=== PATIENT | female | born 1950 | race Caucasian/White ===

== ENCOUNTER 2016-12-07 15:00 | Inpatient (IN) | payer MEDICARE ==
[~2016-12-07] VITALS: Ht 165.1 cm; Wt 88.2 kg
--- NOTE | ~2016-12-07 | DS ---
PATIENT'S NAME: MARINA SUN [facility] AGE: 66 Y [address] ROOM: [id number] [place], [place] [address] LOCATION: GICU ADMIT DATE: 12/07/2016 Discharge Summary DISCHARGE DATE: 12/13/2016 FAMILY PHYSICIAN: Jerri Meade APRN ATTENDING PHYSICIAN: Louis Mcclellan PRESENTING COMPLAINT: Blurred right-sided vision. DISCHARGE DIAGNOSIS: Large acute ischemic stroke in left posterior cerebral hemisphere involving the occipital lobe and adjacent temporal lobe as well as a subacute ischemic infarct in the right occipital lobe. SECONDARY DIAGNOSES: 1. Patent foramen ovale, likely contributing to stroke. 2. Poorly controlled type 2 diabetes mellitus with initiation of insulin therapy during stay. 3. Chronic diastolic congestive heart failure. 4. Chronic obstructive pulmonary disease, baseline home oxygen requirement of 3 L. 5. Obesity, BMI 32. 6. Hypokalemia. 7. History of abdominal aortic aneurysm measuring 4 cm under current surveillance. 8. History of tobacco dependence in remission with 40 pack-year smoking history. 9. Acute kidney injury, creatinine as high as 1.41. PENDING LABS AND TESTS: At time of discharge none. HOSPITAL COURSE: Marina Valdez is a very pleasant, 66-year-old female, presenting to the hospital on December 07 with acute onset stroke symptoms including blurred visual disturbance most pronounced over the right lateral visual field that began the day prior to presentation, with associated headache and apparent confusion which had resolved by the time of admission. Initial imaging, noted above was concerning for multifocal strokes. This prompted further investigation for cardioembolic etiology of stroke. Hospital course was for the most part stable with regard to the stroke as patient did not develop new or worsening focal deficits, and did note that her vision had improved somewhat by the time of discharge. However, stay was complicated by ongoing hyperglycemia to the 200 and low 300s requiring institution of long- acting basal insulin with slowly increase dose up to 20 units daily at time of discharge, as well as initially an CALEB which rapidly resolved with IV fluids. Much of stay was dedicated to identifying intervenable risk factors going forward. The patient underwent NATASHA which was read on December 12 and noted EF 60% to 65%, moderate concentric LVH. Otherwise fairly unremarkable, but PATIENT'S NAME: MARINA SUN [facility] AGE: 66 Y [address] ROOM: [id number] [place], [place] [address] LOCATION: [facility] ADMIT DATE: 12/07/2016 Discharge Summary DISCHARGE DATE: 12/13/2016 FAMILY PHYSICIAN: Jerri Meade APRN ATTENDING PHYSICIAN: Louis Mcclellan poorly visualized valves. This prompted a transesophageal echocardiogram which was performed on same day and read as significant for a probable cardiac source of emboli secondary to patent foramen ovale confirmed with bubble study and a grade 4 atheroma of the ascending aorta. Left atrium was notably moderately dilated, but no thrombus in the left atrial appendage. From the time of admission, the patient had been placed on aspirin as well as high- intensity statin therapy with Lipitor. Following the NATASHA resulted on December 12 per Cardiology, followup plan will be to have patient seen in consultation likely in [place] for possible PFO closure. As patient was seen by Neurology and felt to have failed aspirin therapy, she was transitioned to Plavix prior to discharge in addition to ongoing statin therapy. No other obvious concerning findings during stay including a normal carotid ultrasound was performed. The patient as mentioned above did well. CONSULTANTS: Dr. Wheeler with Cardiology and Dr. Yin with Neurology. CONDITION: Discharged. Last noted vital signs prior to discharge temp 98.3, pulse 83 and regular, respirations 30, blood pressure 140/92, saturating 97% on usual home 3 L of oxygen. For final exam see progress note on date of discharge. DISPOSITION: The patient was discharged with instructions to follow up with her PCP as well as probably Cardiology for possible PFO closure. May need neurology follow up in the future, however will follow pending rehabilitative course and improvements with vision. Time spent on date of discharge, including direct patient care and coordination of discharge activities were 35 minutes. MD CAIT HUGHES/josette /[id number] d: 12/14/162 t: 12/19/16 0806, DISCHARGE SUMMARY
--- NOTE | ~2016-12-07 | ENPV ---
Carotid Duplex Study Demographics Patient Name MARINA SUN Date of Study 12/08/2016 Patient Number [id number] Gender Female Date of 1950 Age 66 Visit Number [id number] Height 65 Accession Number [id number] Weight 205 Referring Vy Rubio MD Interpreting Beto Mcguire MD Physician Physician Physician Ordering Physician Vy Rubio MD Trader Diamond Sizer Katty [facility], T Conclusions Summary The right internal carotid artery has mild, 1-39%, plaque and stenosis. The left vertebral artery is present with antegrade flow. The left internal carotid artery has mild, 1-39%, plaque and stenosis. The left vertebral artery is present with antegrade flow. Procedure Type of Study: Cerebral:Carotid, Carotid Doppler Bilateral. Indications for Study:Ulcer/gangrene. Additional Indications:cva Appropriate Use Criteria:7 Patient Status:Routine. Study Location:Mobile Services. Technical Quality:Adequate visualization. Velocities are measured in cm/s ; Diameters are measured in cm Carotid Right Measurements Carotid Left Measurements + +--------+--------+ + + + +--------+ --------+ + + !Location !PSV !EDV !Angle !%Stenosis ! !Location !PSV ! EDV !Angle !%Stenosis ! + +--------+--------+ + + + +--------+ --------+ + + !Prox CCA !52 !13 !60 ! ! !Prox CCA !94 ! 16 !60 ! ! + +--------+--------+ + + + +--------+ --------+ + + !Dist CCA !56 !11 !60 ! ! !Dist CCA !42 ! 11 !60 ! ! + +--------+--------+ + + + +--------+ --------+ + + !Prox ICA !52 !18 !60 ! ! !Prox ICA !38 ! 13 !60 ! ! + +--------+--------+ + + + +--------+ --------+ + + !Dist ICA !52 !20 !60 ! ! !Dist ICA !70 ! 25 !60 ! ! + +--------+--------+ + + + +--------+ --------+ + + !Prox ECA !96 !14 !60 ! ! !Prox ECA !69 ! 14 !60 ! ! + +--------+--------+ + + + +--------+ --------+ + + !Vertebral !44 !9 !60 ! ! !Vertebral !47 ! 21 !60 ! ! + +--------+--------+ + + + +--------+ --------+ + + !Subclavian !96 !2 !60 ! ! !Subclavian !110 ! 12 !60 ! ! + +--------+--------+ + + + +--------+ --------+ + + - There is antegrade vertebral flow noted on the right side. - Add'l Measurements:Subcl won PRV 110 cm/sICAPSV/CCAPSV 0.74.ICAEDV/CCAEDV 1.54. - Add'l Measurements:Subclavian PRV 96 cm/sICAPSV/CCAPSV 0.99.ICAEDV/CCAEDV 1.48. Impressions Right Impression There is a mild amount of smooth homogeneous plaque in the right carotid bifurcation . Left Impression There is a mild amount of smooth homogeneous plaque in the left carotid bifurcation . Signature dtt: MANDO CORONA dtd: 12/08/16 [facility]5 Physician Self Edit
--- NOTE | ~2016-12-07 | CON ---
PATIENT'S NAME: MARINA SUN [facility] AGE: 66 Y [address] ROOM: [id number] [place], [place] [address] LOCATION: GICU ADMIT DATE: 12/07/2016 Consultation DISCHARGE DATE: FAMILY PHYSICIAN: Jerri Meade APRN ATTENDING PHYSICIAN: Louis Mcclellan REFERRING PHYSICIAN: ROBYN GARDUNO APRN Consult for Dr. Mcclellan. I saw this patient on 12/08/2016 and I am dictating the consult on 12/09/2016 at about 1345 hours. Ms. Sun is a pleasant 66-year-old lady is referred for rehab evaluation, was admitted on 12/07 referred from [place], [place] with history of blurred vision, unable to balance herself well with blurred vision specially with the right eye and still on and off she feels blurred. She also reported that she had a headache and confusion. CT scan of brain report did show ischemic changes in the left occipital lobe measuring 5 x 1 cm. She has improved ever since with confusion and has a lesser extent right visual problems. She feels little unsteady. No nausea, no shortness of breath. Denied any previous history like that. No chest pain. No difficulty with her swallowing. No facial droop. She has may be some visual neglect on the right side. She moves bilateral upper and lower extremity well. Right upper extremity is about 4/5. She did ambulate about 80 feet x1 with PT with front wheeled walker and contact guard minimum assistance. She is at the present time, alert, oriented x3. VITAL SIGNS: Blood pressure 131/77, temperature 98.2, pulse 85, respirations 16. She is 5 feet 5 inches, weighs 93.0 kg. She can well control her bowel and bladder. Cranial nerves 2 through 12 are within normal limits except some slight blurred vision with the right temporal visual field. Tongue and soft palate are moving symmetrical. Voice is clear and not wet. MEDICATIONS: She is on the following medications. 1. Prednisone. 2. KCl. 3. Earth-3. 4. Calcium carbonate with vitamin D. 5. Mag-Ox 400. 6. Furosemide. 7. Tramadol. 8. Gabapentin. PATIENT'S NAME: MARINA SUN [facility] AGE: 66 Y [address] ROOM: [id number] [place], [place] [address] LOCATION: [facility] ADMIT DATE: 12/07/2016 Consultation DISCHARGE DATE: FAMILY PHYSICIAN: Jerri Meade APRN ATTENDING PHYSICIAN: Louis Mcclellan 9. Elavil. 10. Vasotec. 11. Catapres. 12. Pulmicort. 13. Benadryl. 14. Tylenol. 15. Insulin aspart, moderate scale. 16. Glucagon. 17. Glucose. 18. Dextrose. 19. NaCl 0.9%. 20. [place]. 21. Lopressor. 22. Tylenol. 23. Protonix. 24. Aspirin. 25. Lipitor. She has also long-standing low back pain. She had at least two surgeries but still complains of low back pain. ASSESSMENT AND PLAN: I feel this lady so far has made good progress. She did not want to be staying and going to rehab. I feel that if necessary she can follow on outpatient basis. I will keep her on PT, OT, and speech, which already has been initiated. I will follow alongside with you while she is here. Thank you for this referral. MD NIA DUNCANS/modl /[id number] d: 12/09/16 1459 t: 12/10/16 0733, CONSULTATION REPORT
--- NOTE | ~2016-12-07 | ECHO ---
Transthoracic Echocardiography Report (TTE) Demographics Patient Name MARINA SUN Date of Study 12/08/2016 JINX Patient Number [id number] Visit Number [id number] Date of 1950 Room Number S3616HZ Accession Number [id number] Gender Female Age 66 year(s) Referring Vy Rubio MD Dependency Case Manager Katty Bull [facility], Physician RVT Physician Interpreting Alla Vasquez MD Patient Support Representative Physician Supervising Ordering Physician Vy Rubio MD, MD/P Nurse Stress Surgical Supply Assistant Conclusions Summary The estimated left ventricular ejection fraction is 60-65%. Moderate concentric left ventricular hypertrophy. Mild concentric left ventricular hypertrophy. Trivial pulmonic valve regurgitation by color Doppler. The pulmonic valve is not well visualized. Procedure Type of Study TTE procedure:2D Echocardiogram. Procedure Date Date: 12/08/2016 Start: 10:59 AM Study Location: Inpatient Portable Technical Quality: Adequate visualization Additional Indications:CVA Appropriate Use Criteria: 9 Patient Status: Routine Rhythm: Sinus tachycardia HR: 81 bpm M-Mode/2D Measurements LV Diastolic Dimension: 4.08 cm LV Systolic Dimension: 2.4 cm LV Septum Diastolic: 1.39 cm LV Septum Systolic: 3.39 cm LV PW Diastolic: 1.2 cm AO Root Dimension: 2.3 cm Cardiac Output: 4.28 l/min LA Dimension: 2.7 cm RV Diastolic Dimension: 1.81 cm LVOT: 2.6 cm LVOT VTI: 9.96 cm IVC Inspiration: 0.97 cm LV Stroke volume: 52.85 ml RV Mid: 3.23 cm RV Length: 6.64 cm TAPSE: 1.7 cm TDI-S': 19.5 cm/s Doppler Measurements AV Peak Velocity: 1.45 m/s MV Peak E-Wave: 0.48 m/s AV Peak Gradient: 8.41 mmHg MV Peak A-Wave: 0.7 m/s AV Mean Gradient: 3 mmHg MV E/A Ratio: 0.69 LVOT Peak Velocity: 0.91 m/s MV Deceleration Time: 190 msec TR Velocity:2.25 m/s PV Peak Velocity: 0.9 m/s TR Gradient:20.25 mmHg PV Peak Gradient: 3.26 mmHg Estimated RAP:3 mmHg Estimated PASP: 23.25 mmHg Estimated RVSP: 23 mmHg A' Septal Velocity: 0.08 m/s E' Septal Velocity: 0.04 m/s MV E/E' Ratio: 12.3 Findings Left Ventricle The estimated left ventricular ejection fraction is 60-65%. Moderate concentric left ventricular hypertrophy. Mild concentric left ventricular hypertrophy. Diastolic assessment reveals Grade I diastolic dysfunction. Right Ventricle Mild to moderately dilated right ventricle. Left Atrium Normal left atrial size. Right Atrium Normal right atrial size. Mitral Valve Mild mitral regurgitation by color Doppler. Aortic Valve The aortic valve is mildly sclerotic. There is trivial aortic regurgitation by color Doppler. Tricuspid Valve Mild tricuspid regurgitation by color Doppler. Pulmonic Valve Trivial pulmonic valve regurgitation by color Doppler. The pulmonic valve is not well visualized. Pericardial Effusion No evidence of pericardial effusion. Miscellaneous Visualized portions of the aortic root and ascending aorta appear normal in size. Pleural Effusion No evidence of pleural effusion. Signature dtt: Pedro Gold (cardio) dtd: 12/08/16 1059 Physician Self Edit
--- NOTE | ~2016-12-07 | ECHO ---
Transesophageal Echocardiography Report (NATASHA) Demographics Patient Name MARINA SUN Date of Study 12/12/2016 JINX Patient Number [id number] Visit Number [id number] Date of 1950 Room Number [id number] Gender Female Number Age 66 year(s) Referring Vy Rubio MD Personnel Interviewer Kaitlynn Vásquez, Physician RT,RVT,RDCS Physician Interpreting Aminah Miles Checkering Machine Adjuster Physician MD Supervising Ordering Vy Rubio MD, MD/MLP Physician Nurse Stress Appeals Court Associate Justice Conclusions Summary There is evidence for cardiac source of emboli. There is evidence of a patent foramen ovale by color Doppler. Informed consent was obtained, bubble study was done, bubbles crossed to the left atrium suggesting a PFO. There is Grade IV atheroma in the ascending aorta. The left atrium is moderately dilated. There is no thrombus in the left atrial appendage. Supplemental 3D images of IA septum obtained. Patient tolerated the procedure well without any complications. Procedure Type of Study NATASHA procedure:Doppler , Color Doppler. Procedure Date Date: 12/12/2016 Start: 03:36 PM Study Location: Inpatient Portable Technical Quality: Good visualization Indications:CVA. Appropriate Use Criteria: 9 Patient Status: Routine HR: 81 bpm BP: 119/70 mmHg O2 Saturation: 95 % NATASHA Performed By: the attending and the residential sales consultant Type of Anesthesia: Moderate sedation Findings Left Ventricle Normal LV size and systolic function. Left Atrium The left atrium is moderately dilated. There is no thrombus in the left atrial appendage. There is evidence of a patent foramen ovale by color Doppler. Informed consent was obtained, bubble study was done, bubbles crossed to the left atrium suggesting a PFO. Mitral Valve Normal mitral valve structure and function. Trace MR. Aortic Valve The aortic valve is mildly sclerotic. There is trivial aortic regurgitation by color Doppler. Tricuspid Valve Normal appearing tricuspid valve. Pulmonic Valve Normal pulmonic valve structure and function. Miscellaneous The patient was in the fasting state after informed consent was obtained in the written and verbal format. She was prepped with Lidocaine spray as usual. Bite block was placed by nh. Once adequate anesthesia was obtained with anesthesia guidance with propofol sedation the NATASHA probe was placed by me down into the stomach. It was pulled back slightly after a few views were obtained in the transesophageal position where the majority of the case was carried out. At the end of the case the probe was rotated and withdrawn. Patient tolerated the procedure well. There is Grade IV atheroma in the ascending aorta. Contractility Score LV regional wall motion:(0-Non visualized 1-Normal 2-Hypokinesis 3-Akinesis 4-Dyskinesis 5-Aneurysm) Signature dtt: ROCKY BAILEY dtd: 12/12/16 1536 Physician Self Edit
--- NOTE | ~2016-12-07 | CON ---
PATIENT'S NAME: MARINA SUN [facility] AGE: 66 Y [address] ROOM: [place] [address] LOCATION: GICU ADMIT DATE: 12/07/2016 Consultation DISCHARGE DATE: FAMILY PHYSICIAN: Jerri Meade APRN ATTENDING PHYSICIAN: Louis Mcclellan DATE OF CONSULTATION: 12/08/2016 REFERRING PHYSICIAN: ROBYN GARDUNO APRN TIME: 1:45 p.m. CHIEF COMPLAINT: Left occipital stroke. HISTORY OF PRESENT ILLNESS: This is a 66-year-old female who is not necessarily health seeking. She was taken to [place] yesterday afternoon with stroke symptoms. Her stroke symptoms were blurred vision and a right visual field cut. She really cannot say when the symptoms started exactly. She had some headache and confusion also. She waited 24 hours before she sought medical attention. In [place], she had a CT which did show an ischemic stroke in the medial occipital lobe measuring 5 x 1. By the time she had gotten to [facility], she was no longer confused. She continues to have right vision deficits. She denies any headaches. She denies any recent changes in medications. Her right visual field, she describes as sort of like a "machine." She denies nausea and complains of being hungry and thirsty. She does not want to be in the hospital. She denies any chest pain, shortness of breath, or palpitations. She has no problems swallowing. She has no numbness or tingling in her extremities or any focal weaknesses per her complaints. ALLERGIES: NO KNOWN DRUG ALLERGIES. ILLNESSES: 1. Chronic diastolic congestive heart failure. 2. Essential hypertension. 3. Chronic hypoxic and hypercapnic respiratory failure with COPD. 4. Diabetes mellitus, type 2. 5. Morbid obesity. 6. Abdominal aortic aneurysm, recently measured 4 cm by recollection. MEDICATIONS: Include: 1. Amitriptyline 25 mg p.o. q.h.s. PATIENT'S NAME: MARINA SUN [facility] AGE: 66 Y [address] ROOM: [place] [address] LOCATION: GICU ADMIT DATE: 12/07/2016 Consultation DISCHARGE DATE: FAMILY PHYSICIAN: Jerri Meade APRN ATTENDING PHYSICIAN: Louis Mcclellan 2. Baclofen 10 mg p.o. b.i.d. 3. Pulmicort per nebulizer b.i.d. 4. Clonidine 0.1 mg p.o. b.i.d. 5. Vasotec 20 mg p.o. b.i.d. 6. Lasix 40 mg p.o. b.i.d. 7. Gabapentin 600 mg p.o. q.i.d. 8. Glipizide 5 mg p.o. b.i.d. 9. [place] 7.5/325 one tablet p.o. q.i.d. p.r.n. 10. Ibuprofen 800 mg p.o. b.i.d. scheduled. 11. Metformin 100 p.o. b.i.d. 12. Metoprolol 50 mg p.o. b.i.d. 13. Simvastatin 20 mg p.o. daily. 14. Tramadol 50 mg p.o. b.i.d. FAMILY HISTORY: Her father did have heart disease who of an [place] at age 57. Her mother from kidney disease at age 86. SOCIAL HISTORY: She lives in [place]. She is . She has a 33-ukas-grtp history, but has quit for more than 10 years. She does not use alcohol or illicit drugs. REVIEW OF SYSTEMS: All systems were reviewed and are negative as mentioned in the HPI. PHYSICAL EXAMINATION: VITAL SIGNS: Her temperature is 98.4, pulse is 78, respirations 18, blood pressure 144/88, and O2 saturation is 96% on 2 L nasal cannula. GENERAL: She is anxious and expresses displeasure about being in the hospital. She does cooperate with the exam. She is oriented x2. HEENT: Head is normocephalic and atraumatic. Sclerae are nonicteric. Pupils equal, round, and reactive. NECK: Supple without mass or adenopathy. No carotid bruits auscultated. HEART: Regular, with occasional PVCs. She does have a grade 1 to 2 out of 6 murmur best heard at the left upper sternal border. LUNGS: Diminished at the bases bilaterally. No adventitious sounds are heard. NEUROLOGICAL: Cranial nerves 2 through 12 demonstrate homonymous hemianopsia as described above. Strength is 4/5 in the upper and lower extremities. DTRs are 1 to 2 and symmetrical. Gait is not observed. Sensation is intact to light touch. Her NIH Scale is as follows: Level of consciousness 0, patient's current month and age 0, open and close eyes 0, best gaze 0, visual field testing 1, facial paresis 0, left arm motor 0, right arm motor 0, left leg motor 0, right leg motor 1, limb ataxia 0, sensory 0, language 0, dysarthria 0, extinction and inattention 0, for a total NIH stroke score of 2. PATIENT'S NAME: MARINA SUN [facility] AGE: 66 Y [address] ROOM: [id number] [place], [place] [address] LOCATION: [facility] ADMIT DATE: 12/07/2016 Consultation DISCHARGE DATE: FAMILY PHYSICIAN: Jerri Meade APRN ATTENDING PHYSICIAN: Louis Mcclellan ASSESSMENT AND PLAN: 1. The patient has had a large posterior cerebral artery stroke. She has had an MRI which has demonstrated this. Additional testing should include an echocardiogram and a CTA. Also, a carotid study is pending. Because this is very suspicious for a cardioembolic source, if the echo, the carotids, and the CTA are normal, would proceed with a NATASHA, and if that is normal, consider extended cardiac monitoring. 2. Stroke prevention. The patient is on aspirin 81 mg at home. We will change this to Plavix 75 mg p.o. daily. We will also keep her on her statin medication. 3. Stroke rehab. Appreciate PT, OT, and speech and their input with this patient. The patient also has chronic low back pain, so physical therapy is important in that aspect also. We would like to thank you for the chance to participate in this patient's care. The plan of care was developed with Dr. Velazquez and I. If you have any questions, please let us know. ROBYN GARDUNO APRN FOR HUBERT DOVER MD PP/josette /[id number] d: 12/09/16 1335 t: 12/13/16 1841, CONSULTATION REPORT
--- NOTE | ~2016-12-07 | CON ---
PATIENT'S NAME: MARINA SUN [facility] AGE: 66 Y [address] ROOM: [place] [address] LOCATION: [facility] ADMIT DATE: 12/07/2016 Consultation DISCHARGE DATE: FAMILY PHYSICIAN: Jerri Meade APRN ATTENDING PHYSICIAN: Louis Mcclellan REFERRING PHYSICIAN: ROBYN GARDUNO APRN REQUESTING PROVIDER: Louis Mcclellan MD REASON FOR CONSULTATION: History of CVA, two areas noted on the MRI, and plan for NATASHA to evaluate for cardioembolic source. CHIEF COMPLAINT: Change in vision as well as weakness and confusion. HISTORY OF PRESENTING ILLNESS: The patient is a very pleasant, 66-year-old female who is from [place]. She was admitted on 12/07/2016 with acute stroke. She had blurred vision and right visual field cut, and she was initially in [place]. She is unsure when her symptoms exactly started. She also had headaches and confusion. They got a CT scan there, and there was acute ischemic stroke measuring about 5 cm x 1 cm in the medial occipital lobe. By the time she got to [facility] on that day, her confusion essentially resolved, but she did have difficulty with her vision on the right side. She denies headaches. She really does not have any swallowing issues or difficulty breathing. She had complaints of lower extremity edema for which she was started on diuretics. She has chronic shortness of breath and dyspnea on exertion and is on home oxygen and has emphysema. She does not have any other acute complaints. No new chest pain, tightness, pressure, or heaviness. No palpitations or dizziness. She does ambulate with a walker. She reports she is able to walk since she has come in. She does not have any numbness, tingling, or swallowing issues and has been eating okay. No fevers, chills, cough, or sputum production. REVIEW OF SYSTEMS: All review of systems discussed with the patient. Pertinent positives and negatives mentioned in the History of Presenting Illness. ALLERGIES: NO KNOWN DRUG ALLERGIES. MEDICATIONS: She is on: PATIENT'S NAME: MARINA SUN [facility] AGE: 66 Y [address] ROOM: [place] [address] LOCATION: [facility] ADMIT DATE: 12/07/2016 Consultation DISCHARGE DATE: FAMILY PHYSICIAN: Jerri Meade APRN ATTENDING PHYSICIAN: Louis Mcclellan 1. Metoprolol 50 b.i.d. 2. Enalapril 20 b.i.d. 3. Clonidine 0.1 mg b.i.d. 4. Lasix 40 mg b.i.d. 5. Zocor 20 mg daily. 6. Baclofen 10 mg b.i.d. 7. Neurontin 600 q.i.d. 8. Tramadol 50 b.i.d. 9. Glipizide 5 b.i.d. 10. Metformin 1000 b.i.d. 11. Amitriptyline 25 q.h.s. 12. Ibuprofen 800 b.i.d. 13. Lortab 7.5/325 mg p.r.n. pain. 14. Budesonide Pulmicort 1 nebulized treatment b.i.d. 15. Ipratropium one inhaler t.i.d. 16. Prednisone 5 mg p.o. daily. 17. Potassium 10 mEq daily. 18. Calcium carbonate and vitamin D. 19. Aspirin 81 mg daily. 20. Tylenol p.r.n. 21. [place]-3 fatty acids one capsule daily. 22. Magnesium oxide 500 daily. 23. Metolazone 2.5 mg 3 days a week. PAST MEDICAL HISTORY: 1. Chronic diastolic CHF. 2. Lower extremity edema. 3. Hypertension. 4. Chronic hypoxia and chronic obstructive pulmonary disease, emphysema. 5. Diabetes mellitus, type 2. 6. Morbid obesity. 7. History of abdominal aortic aneurysm measuring 4 cm, and this is per the patient. FAMILY HISTORY: There is premature coronary artery disease in her father who of an [place] at age 57. No sudden cardiac . SOCIAL HISTORY: She lives in [place]. She smoked about 40 years, but has quit more than 10 years ago. She does not have any illicit drug abuse or alcohol abuse. PHYSICAL EXAMINATION: VITAL SIGNS: 98.1, pulse is 60, respirations 20, and O2 saturation is 98% on 2.5 L. I's and O's: In is 1240, out is 2275, negative balance of 1035. PATIENT'S NAME: MARINA SUN [facility] AGE: 66 Y [address] ROOM: [id number] [place], [place] [address] LOCATION: [facility] ADMIT DATE: 12/07/2016 Consultation DISCHARGE DATE: FAMILY PHYSICIAN: Jerri Meade APRN ATTENDING PHYSICIAN: Louis Mcclellan GENERAL: The patient is awake, alert, and oriented to time, place, and person. She is not in any apparent distress. She answers questions appropriately. PSYCHIATRIC: Normal mood and affect. SKIN: Warm and dry. HEENT: Head: Atraumatic and normocephalic. Eyes: No xanthelasmas. No jaundice. Sclerae white. NECK: Supple. No JVD. HEART: S1 and S2, regular rate and rhythm. No murmurs, gallops, or rubs. LUNGS: Clear to auscultation bilaterally. ABDOMEN: Soft. Bowel sounds positive. EXTREMITIES: Mild lower extremity edema. MUSCULOSKELETAL: Good range of motion. LABORATORY AND DIAGNOSTIC DATA: EKG: Normal sinus rhythm, nonspecific ST changes. Sodium 136, potassium 3.8, chloride 95, CO2 of 36, and creatinine 0.6. LDL is 51 and triglycerides 133. A1c 9.5. MRI shows: 1. Acute ischemic infarct which is a large area in the right posterior left cerebral hemisphere involving the occipital and adjacent posterior temporal lobe consistent with left posterior cerebral artery involvement. 2. Subacute ischemic infarct in the right occipital lobe which is 2 cm in size in the territory of the right posterior cerebral artery and white matter small vessel ischemic changes. No midline shift. Echocardiogram was done that shows LV systolic function of 60% to 65%, moderate concentric LVH, trivial PI, mild concentric LVH. Carotids bilaterally 1% to 39% stenosis. IMPRESSION AND PLAN: 1. Acute cerebrovascular accident involving two separate areas, suspicion for cardioembolic source of cerebrovascular accident. 2. Type 2 diabetes mellitus, not well controlled, with elevated A1c. 3. Essential hypertension that is fairly well controlled since admission. 4. Chronic diastolic congestive heart failure, appears to be well compensated, and her renal function is stable on current doses of diuretics. 5. History of abdominal aortic aneurysm. Clinically, she is stable. Continue routine followup with her primary care doctor and Vascular. Risks and benefits of NATASHA discussed with the patient. She does not have any contraindications. No swallowing issues. No history of radiation. Her labs are fairly stable. I will check a CBC and make sure her platelet count is PATIENT'S NAME: MARINA SUN [facility] AGE: 66 Y [address] ROOM: [id number] [place], [place] [address] LOCATION: [facility] ADMIT DATE: 12/07/2016 Consultation DISCHARGE DATE: FAMILY PHYSICIAN: Jerri Meade APRN ATTENDING PHYSICIAN: Louis Mcclellan as well. We will arrange with Anesthesia and coordinate a time and proceed with a NATASHA to evaluate for cardioembolic source for cerebrovascular accident. The patient understands all the risks and benefits, and she is agreeable to proceed with the plan at this time. Risks include tear in the esophagus as well as bleeding; also risk of changes in blood pressure, heart rate, and breathing with anesthesia administration which Anesthesia will discuss with the patient as well; risk of esophageal perforation; and is less than 1 in 1000 cases. Thank you very much for allowing us to participate in the care of Ms. Sun. ROCKY BAILEY MD AT/modl /[id number] d: 12/12/16 1400 t: 12/14/16 0922, CONSULTATION REPORT
--- NOTE | ~2016-12-07 | HP ---
PATIENT'S NAME: MACRINA SUN [facility] AGE: 66 Y [address] ROOM: [place] [address] LOCATION: [facility] ADMIT DATE: 12/07/2016 History & Physical DISCHARGE DATE: FAMILY PHYSICIAN: PHYSICIAN, UNKNOWN ATTENDING PHYSICIAN: Louis Mcclellan DATE OF SERVICE: CHIEF COMPLAINT: Left occipital stroke, ischemic. HISTORY OF PRESENTING ILLNESS: This 66-year-old white female was transferred to [facility] from [place] this afternoon with stroke symptoms that began yesterday. She describes some blurred visual disturbance over the right visual field that began sometime early yesterday. She can not really recount exactly what time. She did also develop headache and some progressive confusion apparently. She did not seek medical attention until today. Over the course of her evaluation, she had a CT scan, which showed an ischemic stroke in the medial left occipital lobe measuring 5 x 1 cm approximately. Her confusion has apparently improved, but she continues to experience visual disturbance. She admits to feeling a little unsteady on her feet but denies annie dizziness. She has not fallen. Presently, she denies headache. She reports visual disturbance over the right visual field. She describes it is a "sort of machine." She denies nausea and complains of feeling hungry and thirsty. She has not had any chest pain. She denies shortness of breath. She has not noticed any difficulties with chewing or swallowing. She denies annie abdominal pain, and has been stooling and voiding regularly. No numbness or tingling in her extremities or any associated physical or constitutional complaints. ALLERGIES: NO KNOWN DRUG ALLERGIES. ILLNESSES: 1. Chronic diastolic congestive heart failure. 2. Essential hypertension. 3. Chronic hypoxic and hypercapnic respiratory failure with COPD. 4. Diabetes mellitus type 2. 5. Morbid obesity. 6. Abdominal aortic aneurysm, recently measured 4 cm by her recollection. CURRENT MEDICATIONS: 1. Amitriptyline 25 mg p.o. q.h.s. PATIENT'S NAME: MACRINA SUN [facility] AGE: 66 Y [address] ROOM: [id number] [place] [address] LOCATION: [facility] ADMIT DATE: 12/07/2016 History & Physical DISCHARGE DATE: FAMILY PHYSICIAN: PHYSICIAN, UNKNOWN ATTENDING PHYSICIAN: Louis Mcclellan 2. Baclofen 10 mg p.o. b.i.d. 3. Pulmicort per nebulizer b.i.d. 4. Clonidine 0.1 mg p.o. b.i.d. 5. Vasotec 20 mg p.o. b.i.d. 6. Lasix 40 mg p.o. b.i.d. 7. Gabapentin 600 mg p.o. q.i.d. 8. Glipizide 5 mg p.o. b.i.d. 9. [place] 7.5/325 one tab p.o. q.i.d. p.r.n. 10. Ibuprofen 800 mg p.o. b.i.d. scheduled. 11. Metformin 1000 mg p.o. b.i.d. p.r.n. 12. Metoprolol 50 mg p.o. b.i.d. 13. Simvastatin 20 mg p.o. daily. 14. Tramadol 50 mg p.o. b.i.d. FAMILY HISTORY: Significant for heart disease in her father, who of an [place] at the age of 57. Mother from kidney disease at age 86. SOCIAL HISTORY: She lives in [place]. She has a [id number] history of smoking tobacco, but has been quit for more than 10 years. There is no significant history of alcohol use. REVIEW OF SYSTEMS: As per HPI. All other organ systems reviewed and are negative. PHYSICAL EXAMINATION: VITAL SIGNS: Temperature 98.1, pulse 83, respirations 18, blood pressure 167/89, O2 saturation 95% on 2 L per nasal cannula. GENERAL: She is anxious, but cooperative, lying in bed, no acute distress. She is oriented x2 (not oriented to time). SKIN: Supple, pink, warm, and dry. There are no obvious rashes. HEENT: Otherwise, normocephalic. Sclerae nonicteric. Pupils equal and round, slow to react to light, 7 to 8 mm. She demonstrates a homonymous hemianopsia on the right. Oropharynx is clear. Mucous membranes are pink and moist. NECK: Supple. Plethoric and obese. No masses. No adenopathy. No thyromegaly. No JVD. CHEST: Chest wall is symmetrical. HEART: Regular with occasional extrasystoles. There is grade 1 to 2 out of 6 systolic ejection murmur. LUNGS: Diminished at the bases. No crackles or wheezes are heard. ABDOMEN: Soft, morbidly obese. No masses or hepatosplenomegaly. Bowel sounds are present. and RECTAL: Not done. PATIENT'S NAME: MACRINA SUN [facility] AGE: 66 Y [address] ROOM: [id number] [place] [address] LOCATION: [facility] ADMIT DATE: 12/07/2016 History & Physical DISCHARGE DATE: FAMILY PHYSICIAN: PHYSICIAN, UNKNOWN ATTENDING PHYSICIAN: Louis Mcclellan EXTREMITIES: Display no clubbing, cyanosis, or edema. NEUROLOGIC: Cranial nerves 2 through 12 demonstrate the homonymous hemianopsia as described above. Strength is 4 to 5 out of 5 bilaterally in upper and lower extremities. DTRs are 1 to 2+ symmetrical. Gait is not observed. Sensation appears intact. LABORATORY AND X-RAY DATA: From [place], an EKG shows normal sinus rhythm with nonspecific ST abnormalities. CT scan demonstrates the ischemic stroke in the left occipital lobe as described above. CBC showed a white blood cell count elevated at 12.3, hemoglobin 15.3, hematocrit 47, platelets 315. Chemistries revealed BUN and creatinine of 19 and 1.41 respectively, sodium and potassium of 133 and 3.7, chloride and CO2 are 89 and 37, calcium 9.9. Glucose was elevated at 322. ASSESSMENT AND PLAN: 1. Ischemic stroke, left occipital lobe, subacute presentation. As described above, she presented approximately 24 hours after the development of her symptoms, and therefore well outside of the window for consideration for thrombolysis. We will admit to inpatient care. I placed her on the stroke pathway. We will add aspirin to her regimen and augment her statin therapy with Lipitor. We will follow up on fasting lipid results when they are known. We will also plan to proceed with MRI scanning and carotid Doppler ultrasound and echocardiography and follow up on those when the results are known. We will request consultation by Neurology as well. We will plan to gauge in some restorative cares including physical therapy, occupational therapy, and speech therapy evaluations. 2. Acute encephalopathy, resolved. Probably related to stroke as described above. Unclear what her baseline functional status is, but she appears to be more or less "back to normal." We will monitor and provide ongoing supportive cares. 3. Diabetes mellitus type 2, uncontrolled. We will manage with Accu-Cheks and sliding scale insulin while she is inpatient. 4. Essential hypertension, suboptimal control. We will resume her home medication regimen and monitor. We will allow some permissive hypertension at least for this evening. 5. Acute kidney injury. It is not clear what her baseline creatinine is, and she could have some element of underlying chronic kidney disease. We will gently hydrate with IV fluids at TKO rate. 6. Chronic diastolic congestive heart failure. Currently, appears to be compensated. We will await echo results and follow up accordingly. 7. Morbid obesity. We will need to work on some long-term strategies for weight loss including balance, dietary intake, calorie reduction, increased exercise, etc.. PATIENT'S NAME: MACRINA SUN [facility] AGE: 66 Y [address] ROOM: [place] [address] LOCATION: [facility] ADMIT DATE: 12/07/2016 History & Physical DISCHARGE DATE: FAMILY PHYSICIAN: PHYSICIAN, UNKNOWN ATTENDING PHYSICIAN: Louis Mcclellan 8. Abdominal aortic aneurysm, clinically stable and asymptomatic. Plan clinical followup. 9. Deep venous thrombosis prophylaxis. We will follow the VTE protocol. Mobilize as she is physically able. MD SYDNEY SOLORIO/modl /[id number] D: [id number] T: [id number] HISTORY & PHYSICAL
[2016-12-07] MEDS ORDERED: LOPRESSOR50 MG PO (17:00)
[2016-12-07] MEDS ORDERED: VASOTEC20 MG PO (17:01)
[2016-12-07] MEDS ORDERED: CATAPRES0.1 MG PO (17:02)
[2016-12-07] MEDS ORDERED: LASIX40 MG PO (17:03)
[2016-12-07] MEDS ORDERED: LIORESAL10 MG PO (17:04)
[2016-12-07] MEDS ORDERED: ZOCOR20 M1 PO (17:04)
[2016-12-07] MEDS ORDERED: ULTRAM50 MG PO (17:05)
[2016-12-07] MEDS ORDERED: NEURONTIN600 MG PO (17:05)
[2016-12-07] MEDS ORDERED: GLIPIZIDE5 MG PO (17:06)
[2016-12-07] MEDS ORDERED: ELAVIL25 MG PO (17:07)
[2016-12-07] MEDS ORDERED: GLUCOPHAGE1000 MG PO (17:07)
[2016-12-07] MEDS ORDERED: MOTRIN800 MG PO (17:07)
[2016-12-07] MEDS ORDERED: HYDROCODON-ACE1 EAC2 PO (17:08)
[2016-12-07] MEDS ORDERED: PULMICORT1 MG/2 ML INH (17:09)
[2016-12-07] MEDS ORDERED: ATROVENT I0.5 MG/2.5 INH (17:10)
[2016-12-07] MEDS ORDERED: KLOR-CON SPRIN10 MEQ PO (17:11)
[2016-12-07] MEDS ORDERED: DELTASONE2.5 MG PO (17:11)
[2016-12-07] MEDS ORDERED: CALCIUM + D3 E1 EACH PO (17:12)
[2016-12-07] MEDS ORDERED: ASPIRIN (CHILDR81 MG PO (17:13)
[2016-12-07] MEDS ORDERED: TYLENOL PM EX-1 EACH PO (17:13)
[2016-12-07] MEDS ORDERED: OMEGA 3 FISH O1 EACH PO (17:14)
[2016-12-07] MEDS ORDERED: MAGNESIUM500 MG PO (17:16)
[2016-12-07] MEDS ORDERED: GLUCOSAMINE &1 EAC1 PO (17:16)
--- NOTE | 2016-12-07 17:18 | NUR ---
Significant Event: PATIENT ARRIVED TO FLOOR AT 1545. HAS BEEN FEELING FUNNY A FEW DAYS. STATES TROUBLE WITH RIGHT EYE AND FEELING WEAK. PATIENT IS A/O X 3. FOLLOWS COMMANDS. DOES HAVE DRIFT TO RT LEG, BUT MODERATE STRENGTH IN ALL EXTREMITIES. DENIES NUMBNESS/TINGLING. DID NOT REALLY NOTICE A FACIAL DROOP. AT THIS TIME. PUPILS 4MM, BRISK. LUNGS CLEAR AND DIM ON 3 LITERS OF 2 WHICH SHE WEARS AT HOME. DID HAVE BM THIS AM. C/O CHRONIC PAIN TO BACK. IV IN LEFT HAND CURRENTLY SALINE LOCKED. NIHSS =3 . ALARMS ON FOR SAFETY. DR BRAY HERE NOW TO ASSESS PATIENT AND DO ORDERS. Follow up: ADMISSION ORDERS.
[2016-12-07 19:25] LABS: CREATININE 0.8 mg/dL (0.5-1.1)
--- NOTE | 2016-12-08 04:36 | NUR ---
Significant Event: Patient is A/O, c/o back pain rated at a 7 on a 0-10 scale, PRN [place] x2. Follows commands, all extremeties equal mod strength. 1A to bathroom, gait steady. No slurred speech noted. Patient c/o R) visual field disturbances. LS clear, 3L O2 via NC, SpO2 >90%. BS x4, mod soft bm this shift. ADA diet, ate 50% of dinner. PRN Benadryl given at HS per patients request, slept well, independent for repositioning. MRI screening completed. Follow up: MRI with and without contrast this AM
[2016-12-08] MEDS ORDERED: ZAROXOLYN2.5 MG PO (10:15)
--- NOTE | 2016-12-08 13:44 | NUR ---
[facility] note: 1300 Reviewed patient chart, current A1C was 9.5 %; Patient was on Metformin 1000 mg BID and Glipizide 5 mg BID at home. Current blood sugars since admission 200-300, patient reports that she recently had steriod back injection and is on Predisone 5 mg daily. Discussed importance of proper glycemic control to reduce risks of terminal operator complications associated with type 2 diabetes (heart, eyes, kidneys, nerves and stroke) CDE wrote recommendation to MD on Progress note to consider starting Levemir insulin to assist with glycemic control. Patient verbalizes that she is "...going home tomorrow" and does not want to have to take insulin shots at home. Diabetes Management Booklet provided and patient is willing to fill out the Diabetes Survival Skills checklist left at bedside, will continue to follow.
--- NOTE | 2016-12-08 16:23 | NUR ---
Introduced self and CM role to Kelli. Kelli tells me that she lives at home in [place], [place] with her . Her plan is to return there upon dismissal. PCP is Jerri Woodruff at [facility] in [place], [place]. Kelli manages her own medications at home and get them filled either at the [facility] or by mail order through her Medicare [employer] plan. Kelli uses a 4WW at baseline and denies any needs for any additional DME when she is dismissed. Talked with her at length about HHC vs Outpatient therapies upon dismissal. She would rather do outpatient ST in [place] than have HHC. She also asked about a resource to use to help her find someone that might want to come in and do some cleaning for her at home. Gave her the phone number to [facility] here in [facility] and let her know to start there to see what they might be able to help her with. Kelli states that her or other family will come and pick her up when she is ready to dismiss. No other questions, needs or concerns. Left my contact information on her whiteboard incase any other questions come up. CM to continue to follow and assist. Plan home.
--- NOTE | 2016-12-08 16:53 | NUR ---
Significant Event: PATIENT IS ALERT AND ORIENTED. CAN'T SEE OUT OF RIGHT EYE. 2+ PULSES THROUGHOUT. TRACE EDEMA THROUGHOUT EXTREMITIES. ON 3L O2 NC THE WHOLE DAY, AND WILL DROP INTO 70'S AND 80'S WITH ACTIVITY AND THEN RETURNS TO 90'S WITH REST. LUNGS CLEAR AND DIM. DIABETIC DIET WITH ACHS ACCU CHECKS. PATIENT TREATED WITH INSULIN FOR 0700 AND 1100 BLOOD SUGAR LEVELS. PATIENT REPORTED TWO SMALL BM'S THIS MORNING. NO NEW OR WORSENING SKIN ISSUES. PERIPHERAL IV IN LEFT HAND HAS NS RUNNING AT 20 ML/HR THROUGHOUT THE DAY. PATIENT HAD SCHEDULED MRI THIS MORNING AND WAS OFF THE UNIT FROM 0740 TO 0820. PATIENT HAD SCHEDULED CT THIS EVENING AND WAS OFF THE UNIT FROM 1600 TO 1620. ASPIRIN WAS DC'S AND PATIENT STARTED ON PLAVIX. PATIENT COMPLAINED OF UNBEARABLE BACK PAIN THIS AFTERNOON AND REFUSED HER TRAMADOL. PATIENT STATED "ONLY HYDROCODONE RELIEVES PAIN", SO I GAVE PRN ACET/HYDRO. PATIENT WAS AGITATED. PATIENT IS CURRENTLY UP IN CHAIR. Follow up:
[2016-12-09 05:19] LABS: ANION GAP 10.1 (10.0-19.0); BLOOD UREA NITROGEN 12 mg/dL (6-24); CALCIUM 9.1 mg/dL (8.5-10.5); CHLORIDE 96 mMol/L (96-110); CO2 34 mMol/L (22-32); CREATININE 0.6 mg/dL (0.5-1.1); POTASSIUM 3.1 mMol/L (3.7-5.1); SODIUM 137 mMol/L (135-145)
--- NOTE | 2016-12-09 06:53 | NUR ---
Significant Event: PT IS A/O X3, VSS ON 3L 02 N/C. IMPAIRED PERIPHERAL VISION OF THE RIGHT EYE. FOLLOWS COMMANDS, EQUAL STRENGTH ON ALL EXTREMETIES. TRACE EDEMA ON LOWER EXTREMETIES. LS CLEAR/ DIMINISHED, WILL DESATURATE AND INCREASE IN RR WITH ACTIVITY. HAS PIV ON LEFT HAND, TKO AT 20ML/HR. HAS CHRONIC BACK PAIN, NORCO SCHEDULED Q8H WITH LAST DOSE GIVEN AT 0500. DMT2 WITH ACHS ACCU CHECKS. Follow up:
--- NOTE | 2016-12-09 08:30 | NUR ---
Diabetes consult: Visited with the patient this morning regarding her diabetes. The patient was informed that her A1C was 9.5%. She reports this is improved from a 10%, a couple of months ago. The patient is not wanting to start insulin therapy, although she has done insulin in the past. She attributes her high A1C to recent steroid injection in her back for pain control. She was informed of the increase risk of spool tender complications with blood sugars being elevated. She remains insistent that she can watch her nutrition and continue to take her oral pills. Education was provided and guided by topics on the survival skills checklist. She denies questions or concerns.
--- NOTE | 2016-12-09 14:29 | NUR ---
PT DENIES NEED FOR LOW SODIUM DIET INSTRUCTION. SHE FOLLOWS A DIABETIC DIET AT HOME, AND ALONG WITH THAT WATCHES HER SALT AND FAT INTAKE. SHE STATES THAT SHE USED TO USE A LOT OF SALT, BUT RARELY USES OR COOKS WITH SALT. PT REPORTS THAT SHE KEPT HER DIABETES UNDER CONTROL WELL, BUT WHEN SHE STARTED ON STEROIDS, IT MADE HER BS GO HIGH. PT DOES NOT HAVE ANY QUESTIONS AT THIS TIME.
--- NOTE | 2016-12-09 17:44 | NUR ---
SIGNIFICANT EVENT: PATIENT ALERT, ORIENTED X3. PUPILS EQUAL AND REACTIVE. NODS YES/NO APPROPRIATELY. MOVES ALL 4 EXTREMITIES SPONTANEOUSLY AND TO COMMANDS. EQUAL STRENGTH THROUGHOUHT. SOME FORGETFUL COMMENTS. EASILY AGITATED. DENIES NUMBNESS, TINGLING. COMPLAINS OF OCCASIONAL BACK PAIN, RELIEF NOTED WITH NORCO EVERY 8 HOURS. HR 70-80S. PULSES PALPABLE THROUGHOUT. BP STABLE. SBP 120-150S. MAP> 65. AFEBRILE. PATIENT ON 3L NASAL CANNULA, SATS MID 90S. BOWEL SOUNDS PRESENT, NO BM TODAY. ADEUQATE URINE OUTPUT. ACCU CHECKS AC AND HS. NO NEW SKIN ISSUES NOTED. PIV WITH NS TKO FOLLOW UP: TTE RESULTS PENDING, CONTINUE TO MONITOR
--- NOTE | 2016-12-10 05:24 | NUR ---
Significant Event: Follow up: PATIENT NODS YES/NO TO QUESTIONS, MOVE EXTREMITIES X4, VITAL SIGNS WNL, VOIDS, COMPLAINED OF CHEST PAIN, EKG NORMAL, NIH SCALE SCORE 2
--- NOTE | 2016-12-10 05:41 | NUR ---
PATIENT A/OX3. HYPERTENSIVE, MOVE EXTREMETIES X4, COMPLAINED OF PAIN, VOIDS
--- NOTE | 2016-12-10 17:45 | NUR ---
PATIENT IS AAOX 3. SHE MOVES ALL AND FOLLOWS COMMANDS. SHE SAYS THAT SHE IS IN CONSTANT BACK PAIN. SHE IS HAVING DIFFICULTY SEEING OUT HER OF RIGHT EYE. SHE SAYS SHE IS SEEING THINGS LIKE (FANS MVOING). SHE DID EXPRESS THIS TO MD HOLLAND SO HE IS AWARE. SHE IS ON 3L OF O2. SHE REFUSED HER SECOND BREATHING TREATMENT TODAY BUT HER LUNGS SOUNDS CLEARER THAN THIS MORNING. SHE DID WALK WITH PT. SHE VOIDS TO [facility]. SHE DID NOT HAVE A BOWEL MOVEMENT TODAY BUT HAS ORDERED PRUNE JUICE TO HELP. HER SUGARS WERE HIGH TODAY BUT CONSISTENT ([phone]). WHEN YOU CAN GET HER TALKING ABOUT HER AND FAMILY SHE SEEMS MORE RELAXES AND HAPPIER AND ISN'T FOCUSED ON THE PAIN SO MUCH.
--- NOTE | 2016-12-11 05:33 | NUR ---
Significant Event: Follow up: patient a/ox3, vital signs wnl, sleep all night, moves extremities x4, voids in toliet, complained of pain x2
[2016-12-11 05:38] LABS: BLOOD UREA NITROGEN 18 mg/dL (6-24); CALCIUM 9.4 mg/dL (8.5-10.5); CHLORIDE 95 mMol/L (96-110); CREATININE 0.6 mg/dL (0.5-1.1); POTASSIUM 3.8 mMol/L (3.7-5.1); SODIUM 136 mMol/L (135-145)
[2016-12-11 05:39] LABS: ANION GAP 8.8 (10.0-19.0); CO2 36 mMol/L (22-32)
--- NOTE | 2016-12-11 14:54 | NUR ---
Significant Event: Patient A/Ox3, follows all commands. 1 assist with walker to BR. Continues with right peripheral visual deficit. Denies GARNETT. C/O chronic back pain, scheduled pain medications given. Refused 1100 tylenol. Prn oxycodone givenx1 dose. SR with HR 60-80's. SBP 98-137. Afebrile. On 2L NC, spo2>94%. Lungs asculted clear-clear diminished. Active bowel sounds. Patient states no BM since last monday, new order for docusate and first dose given. ADA diet, good appetite. Accuchecks AC/HS, treatedx2. Follow up:Possible NATASHA on monday/ awaiting TTE results, need to call Dr. Gaitan with them.
--- NOTE | 2016-12-12 05:35 | NUR ---
Significant Event: Follow up: PATIENT A/O X3, MOVES EXTREMITIES X4, VITAL SIGNS WNL, PAIN X2, VOIDS, AMBULATES TO THE TOLIET
--- NOTE | 2016-12-12 08:17 | NUR ---
PT SCREENED D/T LOS. EST NEEDS: 6030-4822 KCALS, 85 GM PROTEIN, 1 ML/KCAL FLUIDS. INTAKE ADEQUATE. BMI IN OBESE RANGE. NO NUTRITION-RELATED DX IDENTIFIED. WILL ASSIST NEEDED.
--- NOTE | 2016-12-12 12:39 | NUR ---
Social visit with Nellie' RN Chioma. Chioma says that they are still waiting on the results fo her TTE to be read before she can have the NATASHA and hopefully after that is done, she will be able to do home. I asked Chioma when that TTE was done and she tells me it was done last week on , it just hadn't been read yet. I then asked if herself or rn relief charge would call and inquire why it hadn't been read yet and when someone was going to do this as this was causing a huge delay in dismissal. freight conductor did call down to cardiology to see when it was going to get read so we could proceed with NATASHA. Chioma says that they are also going to consult Diabetic [facility] to come and see her as well to do some teachings re:insulin as well. Chioma informs me that Kelli has been pretty emotional/tearful today and wanting to get home sooner rather than later. I let her know that the plan was for Kelli to return back home when she was ready to do so. No CM needs at this point. Will continue to follow and assist.
[2016-12-12 12:41] LABS: BASOPHIL # 0.1 K/uL (0.0-0.2); BASOPHIL % 0.5 %; EOSINOPHIL # 0.1 K/uL (0.0-0.5); HEMATOCRIT 42.2 % (33.0-46.0); HEMOGLOBIN 14.1 g/dL (10.0-15.0); IMMATURE GRANULOCYTE % 0.4 %; LYMPHOCYTE # 2.8 K/uL (0.8-4.0); LYMPHOCYTE % 25.6 %; MCHC 33.4 gm/dL (32.0-36.5); MCV 95.7 fl (83.0-98.0); MONOCYTE # 1.1 K/uL (0.0-1.0); MONOCYTE % 10.4 %; MPV 10.9 fl (9.4-12.4); NEUTROPHIL # (ANC) 6.8 K/uL (1.8-7.8); NEUTROPHIL % 62.1 %; NRBC % 0 /100WBC (0-0.00); PLATELET COUNT 294 K/uL (150-450); RBC 4.41 M/uL (3.50-5.50); RDW-CV 13.4 % (11.9-14.6); WBC 10.9 K/uL (4.0-11.0)
--- NOTE | 2016-12-12 13:30 | NUR ---
Diabetes center note: 1300 Spoke with patient regarding consult that was placed for patient to receive education on insulin injections. Patient states she would like for spouse to be present for all education, will have nurses notify CDE tomorrow a.m. when spouse arrives for both of them to be present for insulin administration demonstration. Patient states she has never taken insulin before. Patient will need vial and syringe method due to Medicare Plan for Diabetes Education in a.m. of 12/13/16
--- NOTE | 2016-12-12 16:42 | NUR ---
Significant Event: Patient is A/Ox3,cooperative with cares. Continues with right peripheral deficiency. On 3L NC, spo2>93. Lungs acultated clear/diminished. SR with HR 60-80. SBP 119-149.Afebrile. Active bowel sounds, no BM. ADA diet, good appetite. PRn oxy given x1. Follow up: Needs diabetic education on inuslin administration.
--- NOTE | 2016-12-13 04:52 | NUR ---
Significant Event: Follow up: patient a/ox3, moves extremities x4, vs wnl, ambulates with walker, voids in toliet, sleep all night complained of pain x2
[2016-12-13 05:06] LABS: BLOOD UREA NITROGEN 21 mg/dL (6-24); CALCIUM 9.7 mg/dL (8.5-10.5); CHLORIDE 96 mMol/L (96-110); CREATININE 0.6 mg/dL (0.5-1.1); POTASSIUM 3.2 mMol/L (3.7-5.1); SODIUM 139 mMol/L (135-145)
[2016-12-13 05:09] LABS: ANION GAP 10.2 (10.0-19.0); CO2 36 mMol/L (22-32)
[2016-12-13] MEDS ORDERED: LIPITOR80 MG PO (10:03)
[2016-12-13] MEDS ORDERED: CLOPIDOGREL75 MG PO (10:03)
[2016-12-13] MEDS ORDERED: COLACE100 MG PO (10:04)
[2016-12-13] MEDS ORDERED: LEVEMIR100 UNIT/1 SUB-Q (10:05)
[2016-12-13] MEDS ORDERED: MIRALAX17 GM PO (10:06)
--- NOTE | 2016-12-13 12:22 | NUR ---
Diabetes center note: Spent time to demonstrate and explain insulin therapy. Spouse and patient present for education, written materials and detailed explanation of Levemir insulin action, storage, and timing of insulin injection. Demonstrated the vial and syringe method, drawing and injection technique. Spouse is very supportive and can proper return demonstration, patient does have some difficulty with vision and difficult remembering step by step procedure. Spouse feels comfortable with entire procedure. Reviewed signs and symptoms of low blood sugar and explained frequency of testing blood sugars, patient states she has "plenty of supplies to check blood sugars at home" Encouraged them to check expiration date on bottles of test strips. Instructed to test blood sugars 3-4 times per day and record in log book, FBS and 2 hours post meals. Stressed importance of reporting all results to MD, both state understanding education provided.
--- NOTE | 2016-12-13 13:28 | NUR ---
1308 PATIENT HAS BEEN DISCHARGED FROM UNIT. WAS TAKEN DOWNSTAIRS IN WHEELCHAIR BY RN.
== END 2016-12-13 13:30 | disposition disaster alternative care site (69) | DRG 64 ==
LOC: GPCU 15:00 → GICU 16:06
PROVIDERS: Internal Medicine; Internal Medicine Interventional Cardiology; ADMIT Family Medicine
DX: I63.9 Cerebral infarction, unspecified (principal); G93.40 Encephalopathy, unspecified; J96.01 Acute respiratory failure with hypoxia; N17.9 Acute kidney failure, unspecified; I13.0 Hypertensive heart and chronic kidney disease with heart failure and stage 1 through stage 4 chronic kidney disease, or unspecified chronic kidney disease; I50.32 Chronic diastolic (congestive) heart failure; E11.65 Type 2 diabetes mellitus with hyperglycemia; I71.4 Abdominal aortic aneurysm, without rupture; M54.5 Low back pain; N18.9 Chronic kidney disease, unspecified; Z86.79 Personal history of other diseases of the circulatory system; E66.01 Morbid (severe) obesity due to excess calories; Z68.34 Body mass index [BMI] 34.0-34.9, adult; J44.9 Chronic obstructive pulmonary disease, unspecified; Z79.01 Long term (current) use of anticoagulants; E11.22 Type 2 diabetes mellitus with diabetic chronic kidney disease; Z79.84 Long term (current) use of oral hypoglycemic drugs
CPT/HCPCS: A9270; A9577; J2001; J7030; J7512; Q9967